=== PATIENT | female | born 1980 | race Caucasian/White ===

== ENCOUNTER 2021-09-05 07:44 | Emergency (ER) | payer MEDICAID, SELFPAY ==
[2021-09-05] VITALS (11 sets, daily range): BP systolic 116–137; BP diastolic 71–102; PULSE 62–79; RESP 16–17; TEMP 36.7–37.2; O2SAT 97–100; BMI 25.8
--- NOTE | 2021-09-05 07:58 | CT_ITS ---
STUDY: CT BRAIN WITHOUT CONTRAST REASON FOR EXAM: Female, 41 years old. Headache, confusion RADIATION DOSAGE (If Supplied By Facility): CTDIvol = ( 44.99 ) mGy, DLP = ( 829.85 ) mGycm TECHNIQUE: Transaxial CT imaging of the brain was performed without administration of intravenous contrast material. Individualized dose optimization techniques were used for this CT. COMPARISON: No relevant priors. FINDINGS: Normal soft tissue structures. Normal calvarium. Normal size ventricles and extra-axial spaces for the patient''s age. Normal white matter tracts of the cerebral hemispheres. Normal basal ganglia and thalami. Normal brainstem. There is mild cerebellar atrophy. There is no intracranial hemorrhage. There are no findings of an acute ischemic infarction. Normal visualized paranasal sinuses. CT/Brain/Head without Contrast IMPRESSION: Normal unenhanced CT scan of the brain. Electronically Signed: Joanne Aguayo MD at 9:18 EDT ,
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
[2021-09-05] MEDS: Ziprasidone IM 20 MG/ML VIAL IM (08:23)
[2021-09-05] MEDS: LORazepam 2 MG/ML Syringe IM (08:23)
--- NOTE | 2021-09-05 09:02 | ED.RN ---
track galeas noticed on BL AC by this nurse and sound system installer.
[2021-09-05 09:09] LABS: Absolute Lymphocyte Count 1.59 X10^3/uL (0.83-4.51); Absolute Neutrophil Count 6.2 X10^3/uL (2.0-7.7); Basophil# 0.02 X10^3/uL; Basophil% 0.2 % (0-1); Eosinophil# 0.05 X10^3/uL; Eosinophils% 0.6 % (0-5); Hematocrit 38.9 % (37-47); Hemoglobin 12.7 g/dL (12.0-15.0); Lymphocyte # 1.59 X10^3/ul (0.83-4.51); Lymphocyte % 18.6 % (19-41); Mean Corp Hgb Conc 32.6 g/dL (32-36); Mean Corpuscular Hgb 28.4 pg (27.0-32.0); Mean Platelet Vol. 9.1 fl (6.2-12.0); Monocyte# 0.65 X10^3/uL; Monocyte% 7.6 % (0-10); NRBC Flagged by Analyzer 0 % (0-5); Neutrophil # 6.21 X10^3/uL (2.7-7.7); Neutrophil % 72.9 % (47-70); Platelet Count 253 K/mm3 (150-450); RBC Distribution Width SD 40.8 fl (35.1-43.9); Red Blood Count 4.47 M/mm3 (4.2-5.4); White Blood Count 8.5 K/mm3 (4.4-11.0)
[2021-09-05 09:41] LABS: Mucous, Urine 0 SEEN /hpf (<or=2+); Squamous Epithelial Cells - UA 0 SEEN /hpf (5-10)
[2021-09-05 09:50] LABS: Alcohol, Blood (Medical)-Serum < 3.0 mg/dL
[2021-09-05 09:53] LABS: Color, Urine Yellow (Yellow); Glucose, Dipstick Normal (Normal); Ketone-Dipstick 15 mg/dl (Negative); Leukocyte Esterase-Dipstick 500 /ul (Negative); Nitrite-Dipstick Positive (Negative); Occult Blood-Urine 50 /ul (Negative); Protein-Dipstick Negative (Negative); Specific Gravity, Urine 1.015 (1.002-1.030); Urine Bilirubin Dipstick Negative (Negative); Urine Clarity Sl. Cloudy (Clear); Urine Urobilinogen Normal (Normal)
[2021-09-05 09:59] LABS: Amphetamine Urine VISTA POSITIVE (<1000 ng/mL); Barbiturate Urine VISTA NEGATIVE (< 200 ng/mL); Benzodiazepine Urine VISTA NEGATIVE (< 200 ng/mL); Cocaine Urine VISTA NEGATIVE (< 300 ng/mL); Ecstacy Urine VISTA POSITIVE (< 500 ng/mL); Methadone Urine VISTA NEGATIVE (< 300 ng/mL); PCP Urine VISTA NEGATIVE (< 25 ng/mL); THC Urine VISTA NEGATIVE (< 50 ng/mL); Vista UDS pH Range 6
[2021-09-05 10:02] LABS: Bacteria 4+ /hpf (None Seen); Red Blood Cells-Urine 0-5 SEEN /hpf (0-5); White Blood Cells 10-25 SEEN /hpf (0-5)
[2021-09-05 10:03] LABS: ALB/GLOB Ratio 1.2 RATIO (0.9-2.4); AST(SGOT) 11 U/L (15-37); Alanine Aminotransfer ALT/SGPT 18 U/L (13-56); Albumin, Serum 4.1 g/dL (3.2-5.0); Alkaline Phosphatase 87 U/L (45-117); Anion Gap 6 (5-15); BUN 15 mg/dL (7-18); BUN/Creat Ratio 19.4 RATIO (10-20); Calcium,Total 9.3 mg/dL (8.5-10.1); Chloride 109 mmol/L (98-107); Creatinine, Serum 0.77 mg/dL (0.55-1.02); EST Glomerular Filtration Rate 88 mL/min (>60); Est Glom Filt Rate - Afr Amer 107 mL/min (>60); Estimated Creatinine Clearance 91.83 ml/min; Globulin 3.3 g/dL (2.2-4.2); Glucose 111 mg/dL (74-106); Potassium 3.9 mmol/L (3.5-5.1); Protein, Total 7.4 g/dL (6.4-8.2); Sodium Level 141 mmol/L (136-145)
--- NOTE | 2021-09-05 10:59 | NURSING ---
FAXED CHART TO CRISIS
--- NOTE | 2021-09-05 12:03 | NURSING ---
CALLED [facility] TO MAKE SURE FAX WAS RECEIVED.
--- NOTE | 2021-09-05 13:46 | NURSING ---
ALIX, CRISIS, IN ROOM WITH PATIENT
[2021-09-05] MEDS: Smz/Tmp Ds Tablet 1 TABLET PO (16:09)
--- NOTE | 2021-09-05 18:18 | NURSING ---
CALLED [facility], ETA IS 30 MIN
--- NOTE | 2021-09-05 18:18 | NURSING ---
[facility], [facility]ULT [facility] DR GAO NURSE TO NURSE [phone]
== END 2021-09-05 19:08 | disposition short-term general hospital (02) ==
PROVIDERS: Emergency Provider Emergency Medicine; PCP Family Medicine; Visit Provider Emergency Medicine
DX: N39.0 Urinary tract infection, site not specified (principal); R41.0 Disorientation, unspecified; R45.1 Restlessness and agitation; F15.90 Other stimulant use, unspecified, uncomplicated; R51.9 Headache, unspecified; F17.210 Nicotine dependence, cigarettes, uncomplicated
CPT/HCPCS: 51701; 51702; 70450; 80053; 80307; 81001; 82077; 85025; 87811; 96372; 99284; P9612; A4216; J3486

== ENCOUNTER 2021-12-16 22:48 | Emergency (ER) | payer MEDICAID, SELFPAY ==
[2021-12-16 22:49] VITALS: BP 133/95; PULSE 91; RESP 16; TEMP 36.5; O2SAT 98; BMI 24.2
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
[2021-12-16] MEDS: LORazepam 2 MG/ML Syringe IM (23:18)
[2021-12-16] MEDS: Ziprasidone IM 20 MG/ML VIAL IM (23:18)
[2021-12-16 23:44] LABS: Absolute Lymphocyte Count 2.53 X10^3/uL (0.83-4.51); Absolute Neutrophil Count 4.9 X10^3/uL (2.0-7.7); Basophil# 0.04 X10^3/uL; Basophil% 0.5 % (0-1); Eosinophil# 0.29 X10^3/uL; Eosinophils% 3.4 % (0-5); Hematocrit 39.8 % (37-47); Hemoglobin 12.8 g/dL (12.0-15.0); Lymphocyte # 2.53 X10^3/ul (0.83-4.51); Lymphocyte % 29.8 % (19-41); Mean Corp Hgb Conc 32.2 g/dL (32-36); Mean Corpuscular Volume 90.2 fL (81-99); Monocyte# 0.64 X10^3/uL; Monocyte% 7.5 % (0-10); NRBC Flagged by Analyzer 0 % (0-5); Neutrophil # 4.94 X10^3/uL (2.7-7.7); Neutrophil % 58.3 % (47-70); Platelet Count 271 K/mm3 (150-450); RBC Distribution Width CV 12.5 % (11.6-14.6); RBC Distribution Width SD 41.6 fl (35.1-43.9); Red Blood Count 4.41 M/mm3 (4.2-5.4); White Blood Count 8.5 K/mm3 (4.4-11.0)
[2021-12-16 23:57] LABS: Internal QC Validated? YES +Cl - CLEAR BKGD; Pregnancy, Serum, hCG Quali. NEGATIVE Negative
[2021-12-17] VITALS (9 sets, daily range): BP systolic 105–140; BP diastolic 60–83; PULSE 52–76; RESP 13–17; O2SAT 97–100
[2021-12-17 00:02] LABS: Anion Gap 7 (5-15); BUN 15 mg/dL (7-18); BUN/Creat Ratio 20.7 RATIO (10-20); Calcium,Total 9.8 mg/dL (8.5-10.1); Chloride 109 mmol/L (98-107); Creatinine, Serum 0.72 mg/dL (0.55-1.02); EST Glomerular Filtration Rate 95 mL/min (>60); Est Glom Filt Rate - Afr Amer 115 mL/min (>60); Glucose 108 mg/dL (74-106); Sodium Level 143 mmol/L (136-145)
[2021-12-17 00:05] LABS: Amphetamine Urine VISTA POSITIVE (<1000 ng/mL); Barbiturate Urine VISTA NEGATIVE (< 200 ng/mL); Benzodiazepine Urine VISTA NEGATIVE (< 200 ng/mL); Cocaine Urine VISTA NEGATIVE (< 300 ng/mL); Ecstacy Urine VISTA POSITIVE (< 500 ng/mL); Methadone Urine VISTA NEGATIVE (< 300 ng/mL); PCP Urine VISTA NEGATIVE (< 25 ng/mL); THC Urine VISTA NEGATIVE (< 50 ng/mL); Vista UDS pH Range 5
[2021-12-17 00:09] LABS: Acetaminophen (Tylenol) Level < 2.0 ug/mL (10.0-30.0); Alcohol, Blood (Medical)-Serum < 3.0 mg/dL; Salicylate 3.2 mg/dL (2.8-20.0)
[2021-12-17 00:17] LABS: Color, Urine Yellow (Yellow); Glucose, Dipstick Normal (Normal); Ketone-Dipstick Negative (Negative); Leukocyte Esterase-Dipstick 500 /ul (Negative); Mucous, Urine 0 SEEN /hpf (<or=2+); Nitrite-Dipstick Positive (Negative); Occult Blood-Urine 25 /ul (Negative); Protein-Dipstick 15 mg/dl (Negative); Specific Gravity, Urine 1.025 (1.002-1.030); Urine Bilirubin Dipstick Negative (Negative); Urine Clarity Cloudy (Clear); Urine Urobilinogen Normal (Normal)
[2021-12-17 00:24] LABS: Bacteria 4+ /hpf (None Seen); Red Blood Cells-Urine 0-5 SEEN /hpf (0-5); Squamous Epithelial Cells - UA 25-50 SEEN /hpf (5-10); Trichomonas 0-5 SEEN /hpf (None Seen); White Blood Cells 25-50 SEEN /hpf (0-5)
[2021-12-17] MEDS: Ceftriaxone 1 GM/50 ML BAG IV (01:02)
--- NOTE | 2021-12-17 04:01 | ED.RN ---
0345: 4 point restraints are all dc'd at this time. pt is sleeping and no longer yelling obscenties or posing to be a threat to herself or staff. will continue to monitor. vss.
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
--- NOTE | 2021-12-17 11:37 | EKG12_ITS ---
Test Reason : MEDICAL CLEARENCE Blood Pressure : / mmHG Vent. Rate : 071 BPM Atrial Rate : 071 BPM P-R Int : 128 ms QRS Dur : 084 ms QT Int : 432 ms P-R-T Axes : 075 072 074 degrees QTc Int : 469 ms Normal sinus rhythm Normal ECG Confirmed by ROSALIND FRANCO, YAYA ([id number]), purchase request editor MARLY DE LA TORRE ([id number]) on 12/21/2021 9:46:53 AM Referred By: RICHARD Confirmed By:YAYA BOYER MD
--- NOTE | 2021-12-17 12:14 | NURSING ---
PHYSICIANS CALLED. ETA OF 1245.
--- NOTE | 2021-12-17 12:18 | CM.ED ---
CRISTHIAN MCKEON and Eda Dwyer RN met with patient and she was advised she was going to psych facility. LINDA was advised by Micaela, sustainable communities designer that patient was accepted at [facility] ([facility] for psychiatry) with accepting MD Pascal in the Dual Diagnosis unit. Micaela advised that they wanted a new pink slip signed by the MD not the original pink slip signed by [facility]. signed new pink slip for patient. Micaela is arranging transportation. Plan: [facility] Amie LIZAMA
== END 2021-12-17 13:17 ==
LOC: ED 23:38
PROVIDERS: Emergency Provider Emergency Medicine; PCP Family Medicine; Visit Provider Emergency Medicine
DX: R41.0 Disorientation, unspecified (principal); F17.210 Nicotine dependence, cigarettes, uncomplicated; R45.1 Restlessness and agitation; R45.851 Suicidal ideations
CPT/HCPCS: 80048; 80307; 80329; 81001; 82077; 84703; 85025; 87077; 87086; 87088; 87186; 87811; 93005; 96360; 96365; 96372; 99285; A4216; G0480; J3486